=== PATIENT | female | born 1945 | race Caucasian/White ===

== ENCOUNTER 2017-06-27 06:01 | Emergency (ER) | payer OTHER ==
[~2017-06-27] VITALS: Ht 160 cm; Wt 48.1 kg
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
--- NOTE | 2017-06-27 06:58 | NUR ---
ETA FOR RT TRANSPORT 1130-12 TRIP NUMBER [id number] DISPATCHER SANDRA
[2017-06-27 10:05] VITALS: BP 104/75
[2017-06-27] MEDS ORDERED: FERR220S17 GT (18:14)
[2017-06-27] MEDS ORDERED: HALO1TAB5 GT (18:14)
[2017-06-27] MEDS ORDERED: ZOLP5TAB2 GT (18:14)
[2017-06-27] MEDS ORDERED: LOSA50TA21 PO (18:14)
[2017-06-27] MEDS ORDERED: FOLI1TAB16 GT (18:14)
[2017-06-27] MEDS ORDERED: METO100T14 PO (18:14)
[2017-06-27] MEDS ORDERED: LACT-209 GT (18:14)
[2017-06-27] MEDS ORDERED: HYDR-548 PO (18:14)
[2017-06-27] MEDS ORDERED: ESCI10TA GT (18:14)
[2017-06-27] MEDS ORDERED: CYAN10009 GT (18:14)
[2017-06-27] MEDS ORDERED: ASPI-1169 PO (18:14)
[2017-06-27] MEDS ORDERED: LEVE100S GT (18:14)
[2017-06-27] MEDS ORDERED: FENT1PAT4 TD (18:14)
[2017-06-27] MEDS ORDERED: PIPE3.379 IV (18:14)
[2017-06-27] MEDS ORDERED: QUET100T GT (18:14)
[2017-06-27] MEDS ORDERED: PANT40TA4 GT (18:14)
[2017-06-28] MEDS ORDERED: CEPH-570 PO (11:27)
== END 2017-06-27 12:36 | disposition home or self-care (01) ==
LOC: ER 06:05
DX: K94.09 Other complications of colostomy (principal); I10 Essential (primary) hypertension; Z99.11 Dependence on respirator [ventilator] status
CPT/HCPCS: A4606; Z7610

== ENCOUNTER 2017-06-27 17:21 | Inpatient (IN) | payer OTHER ==
[~2017-06-27] VITALS: Ht 160 cm; Wt 44.0 kg
--- NOTE | 2017-06-27 17:24 | NUR ---
BIBRA FROM A BOARD AND CARE DUE TO PATIENT IS PULLING OUT TRACHE AND GT. NO OTHER COMPLAIN,. PATIENT'S VSS.
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
[2017-06-27 17:50] LABS: BASOPHILS % (AUTO) 0.2 % (0.0-2.0); EOSINOPHILS % (AUTO) 0.3 % (0.0-6.0); HEMATOCRIT 26 % (33-45); HEMOGLOBIN 8.8 g/dL (11.5-14.8); LYMPHOCYTES # (AUTO) 1.1 /CMM (0.8-4.8); LYMPHOCYTES % (AUTO) 4.8 % (20.0-44.0); MEAN CORPUSCULAR HGB CONC 34 g/dl (31.0-36.0); MEAN CORPUSCULAR VOLUME 94 fL (82-100); MONOCYTES # (AUTO) 0.3 /CMM (0.1-1.30); MONOCYTES % (AUTO) 1.2 % (2.0-12.0); NEUTROPHILS # (AUTO) 21.6 /CMM (1.8-8.9); NEUTROPHILS % (AUTO) 93.5 % (43.0-81.0); PLATELET COUNT (AUTO) 349 /CMM (150-450); RDW COEFFICIENT OF VARIATION 12.8 (11.5-15.0); RED BLOOD CELL COUNT(AUTO) 2.74 MIL/uL (4.0-5.2); WHITE BLOOD COUNT (AUTO) 23.1 K/uL (4.3-11.0)
--- NOTE | 2017-06-27 17:52 | NUR ---
John sifuentes in [facility] - 06/27/17 at 1752 by DANIELLE TELE [id number]
[2017-06-27 18:05] LABS: INR 0.98 (0.85-1.15)
[2017-06-27 18:08] LABS: TROPONIN I 0.062 ng/mL (0.00-0.056)
[2017-06-27 18:09] LABS: CALCIUM, SERUM 8.8 mg/dL (8.5-10.1); CREATININE 0.6 mg/dL (0.6-1.3); POTASSIUM 4.3 mmol/L (3.5-5.1)
[2017-06-27] MEDS ORDERED: LACT-209 GT (18:14)
[2017-06-27] MEDS ORDERED: ESCI10TA GT (18:14)
[2017-06-27] MEDS ORDERED: ZOLP5TAB2 GT (18:14)
[2017-06-27] MEDS ORDERED: FOLI1TAB16 GT (18:14)
[2017-06-27] MEDS ORDERED: HALO1TAB5 GT (18:14)
[2017-06-27] MEDS ORDERED: LEVE100S GT (18:14)
[2017-06-27] MEDS ORDERED: CYAN10009 GT (18:14)
[2017-06-27] MEDS ORDERED: ASPI-1169 PO (18:14)
[2017-06-27] MEDS ORDERED: PANT40TA4 GT (18:14)
[2017-06-27] MEDS ORDERED: FERR220S17 GT (18:14)
[2017-06-27] MEDS ORDERED: QUET100T GT (18:14)
[2017-06-27] MEDS ORDERED: LOSA50TA21 PO (18:14)
[2017-06-27] MEDS ORDERED: PIPE3.379 IV (18:14)
[2017-06-27] MEDS ORDERED: METO100T14 PO (18:14)
[2017-06-27] MEDS ORDERED: HYDR-548 PO (18:14)
[2017-06-27] MEDS ORDERED: FENT1PAT4 TD (18:14)
[2017-06-27 18:15] LABS: ALBUMIN 2.5 g/dL (3.4-5.0); BILIRUBIN,DIRECT 0.1 mg/dL (0.0-0.2); BILIRUBIN,TOTAL 0.3 mg/dL (0.2-1.0); TOTAL PROTEIN, SERUM 7.1 g/dL (6.4-8.2)
--- NOTE | 2017-06-27 18:22 | NUR ---
CALLED , LEFT MESSAGE ON VOICEMAIL.
--- NOTE | 2017-06-27 18:23 | NUR ---
CALLED NURSING SUP. FOR TELE BED
[2017-06-27] MEDS ORDERED: CEFTRIAXONE 1GM BAG (ER ONLY) 50 ML IV ONE ×2 (18:30→18:46)
[2017-06-27 18:46] LABS: BAND % (MANUAL) 4 % (0.0-5.0); LYMPHOCYTES % (MANUAL) 3 % (16-48); MONOCYTES % (MANUAL) 2 % (0-11.0); NEUTROPHILS % (MANUAL) 91 (42-76)
--- NOTE | 2017-06-27 19:12 | NUR ---
MAVERICK 105
--- NOTE | 2017-06-27 19:13 | NUR ---
REPORT GIVEN TO DANA JACOB
[2017-06-27 19:20] LABS: APPEARANCE,URINE SL CLOUDY (CLEAR); BILIRUBIN,URINE NEGATIVE (NEGATIVE); BLOOD, URINE 1+ Ery/uL (NEGATIVE); COLOR,URINE YELLOW (YELLOW); KETONES,URINE NEGATIVE (NEGATIVE); LEUKOCYTE ESTERASE ,URINE 1+ (NEGATIVE); NITRITE, URINE NEGATIVE (NEGATIVE); PH,URINE 5.5 (5.0-8.0); PROTEIN,URINE 1+ mg/dl (NEGATIVE); UGLUCOSE NEGATIVE (NEGATIVE); UROBILINOGEN,URINE 0.2 EU/dL (0.2)
[2017-06-27 19:38] LABS: BACTERIA,URINE 2+ /HPF (None Seen); SQUAMOUS EPITHELIAL CELL,UR 0-2 /HPF (None Seen); YEAST,URINE Many /HPF (None Seen)
--- NOTE | 2017-06-27 19:53 | NUR ---
PATIENT IS RESTING IN ER BED, NO DISTRESS NOTED. PATIENT IS ON SODA ROOM OPERATOR, SKIN WARM AND DRY, RESP EVEN, YECENIA T DEPENDENT
[2017-06-27 20:00] VITALS: BP 105/84
--- NOTE | 2017-06-27 20:41 | NUR ---
KERRY CORTEZ TOOK REPORT
--- NOTE | 2017-06-27 20:49 | NUR ---
RN MAVERICK INITIAL NOTE RECEIVED PATIENT FROM ER, REPORT GIVEN BY NIDIA, PATIENT RESTING COMFORTABLY IN BED, TRACH TO MECHANICAL VENT ON SETTINGS ORDERED. PATIENT IS NON VERBAL, HOB ELEVATED SIDE RAILS X3, PRITI PICC TRIPLE LUMEN PATENT FLUSHING WELL, SITE CDI, MEPILEX PLACED ON SACRUM DUE TO REDNESS, F/C DRAINING TO GRAVITY, BILATERAL SOFT WRISTS RESTRAINTS DUE TO PATIENT PULLING LINES, COLOSTOMY IN PLACE, NEW APPLIANCE PLACED, SAFETY MAINTAINED AT ALL TIMES, BED IN LOW LOCKED POSITION. CALL LIGHT WITHIN REACH. WILL CONTINUE TO MONITOR FOR ANY CHANGES IN CONDITION.
[2017-06-27] MEDS ORDERED: ASPIRIN 300 MG/SUPP.RECT RC ONE ×2 (21:00→21:01)
--- NOTE | 2017-06-27 21:02 | NUR ---
transported pt to tele bed with emt and rt without incident
[2017-06-27] MEDS ORDERED: FIBERSOURCE HN 1,000 ML BOTTLE GT PRN (22:00)
[2017-06-27] MEDS ORDERED: HYDROCODONE/APAP 10/325MG 1 EA TABLET GT PRN (22:00)
[2017-06-27] MEDS ORDERED: ZOLPIDEM TARTRATE 10 MG TABLET GT PRN (22:00)
--- NOTE | 2017-06-27 22:28 | NUR ---
RN MAVERICK NOTE SN SPOKE WITH DR MARTINEZ CONCERNING PATIENTS BP 89/52 ORDER TO STOP METOPROLOL AND COZAAR, ALSO TO GIVE NS 500 CC BOLUS.
[2017-06-27] MEDS ORDERED: HALOPERIDOL 1 MG TABLET GT PRN (22:30)
[2017-06-27] MEDS ORDERED: IV NS 0.9% 500 ML IV ONE (22:30)
[2017-06-27 22:36] VITALS: BP 89/52
[2017-06-27] MEDS ORDERED: VANCOMYCIN 1 GM VIAL ONE (22:57)
[2017-06-27] MEDS ORDERED: PIPERACILLIN /TAZOBACTAM 3.375 G VIAL IV ONE (22:58)
[2017-06-27] MEDS ORDERED: IV NS 0.9% 250 ML IV PRN (23:00)
[2017-06-27] MEDS ORDERED: VANCOMYCIN 1 GM in IV D5W 250 ML IV ONE (23:00)
[2017-06-27] MEDS: PIPERACILLIN /TAZOBACTAM 3.375 G in IV D5W 100 ML IV SCH (23:09)
[2017-06-28] VITALS: BP 121/64
[2017-06-28 04:00] VITALS: BP 121/72
[2017-06-28] MEDS ORDERED: PIPERACILLIN /TAZOBACTAM 3.375 G VIAL IV ONE (05:06)
[2017-06-28] MEDS: PIPERACILLIN /TAZOBACTAM 3.375 G in IV D5W 100 ML IV SCH (05:38)
[2017-06-28 06:36] LABS: ALBUMIN 2.4 g/dL (3.4-5.0); BILIRUBIN,TOTAL 0.5 mg/dL (0.2-1.0); CALCIUM, SERUM 8.6 mg/dL (8.5-10.1); CREATININE 0.6 mg/dL (0.6-1.3); POTASSIUM 4.3 mmol/L (3.5-5.1); TOTAL PROTEIN, SERUM 6.8 g/dL (6.4-8.2)
[2017-06-28] MEDS ORDERED: FEE PK DOSING 1 MIN EA MC ONE (07:12)
[2017-06-28 07:14] LABS: BASOPHILS % (AUTO) 0.3 % (0.0-2.0); EOSINOPHILS % (AUTO) 1.4 % (0.0-6.0); HEMATOCRIT 24 % (33-45); HEMOGLOBIN 8.5 g/dL (11.5-14.8); LYMPHOCYTES # (AUTO) 1.6 /CMM (0.8-4.8); MEAN CORPUSCULAR HGB CONC 35 g/dl (31.0-36.0); MEAN CORPUSCULAR VOLUME 92 fL (82-100); MONOCYTES # (AUTO) 0.3 /CMM (0.1-1.30); MONOCYTES % (AUTO) 1.7 % (2.0-12.0); NEUTROPHILS # (AUTO) 14.2 /CMM (1.8-8.9); NEUTROPHILS % (AUTO) 86.6 % (43.0-81.0); PLATELET COUNT (AUTO) 377 /CMM (150-450); RDW COEFFICIENT OF VARIATION 12.7 (11.5-15.0); RED BLOOD CELL COUNT(AUTO) 2.64 MIL/uL (4.0-5.2); WHITE BLOOD COUNT (AUTO) 16.4 K/uL (4.3-11.0)
--- NOTE | 2017-06-28 07:30 | NUR ---
MAVERICK RN NOTE: RECEIVED PATIENT IN BED, AWAKE, CONFUSED AND NONVERBAL. ON VENT-TRACH DEPENDENT SATURATING 100%. GT FEEDING OF FIBERSOURCE @40CC/HR IS RUNNING. (L) UA PICC LINE NOTED PATENT AND INTACT. HOB ELEVATED. ON LABEL STAMPER, SR HR= 83. (B) SOFT WRIST RESTRAINT WAS IN PLACED DUE TO THE PATIENT'S BEHAVIOR OF PULLING THE COLOSTOMY BAG AND TRACHEOSTOMY. COLOSTOMY BAG NOTED CLEAN AND DRY AT THIS TIME. CHI CATHETER IN PLACED W/ YELLOW URINE DRAINING TO GRAVITY. BED ALARM AND LOCKED AT ALL TIMES. CALL LIGHT WITHIN REACH. NEEDS ANTICIPATED.
[2017-06-28 08:00] VITALS: BP 101/67
[2017-06-28] MEDS ORDERED: FIBERSOURCE HN 1,000 ML BOTTLE GT PRN (08:15)
[2017-06-28] MEDS: FERROUS SULFATE (325 MG) 325 MG/TAB TABLET GT SCH ×2 (08:46→16:22)
[2017-06-28] MEDS: LEVETIRACETAM SOL (5 ML) 100 MG/ML UDC GT SCH ×2 (08:47→16:22)
[2017-06-28] MEDS ORDERED: ESCITALOPRAM OXALATE (10 MG) 10 MG TABLET GT SCH (09:00)
[2017-06-28] MEDS ORDERED: METOPROLOL TARTRATE 50 MG TABLET GT SCH (09:00)
[2017-06-28] MEDS ORDERED: CYANOCOBALAMIN 500 MCG TABLET GT SCH (09:00)
[2017-06-28] MEDS ORDERED: LOSARTAN POTASSIUM 50 MG TABLET GT SCH (09:00)
[2017-06-28] MEDS ORDERED: PANTOPRAZOLE 40 MG/PACK PACK GT SCH (09:00)
[2017-06-28] MEDS ORDERED: FENTANYL TD PATCH (25 MCG/HR) 25 MCG/HR PATCH.TD72 TD SCH ×2 (09:00→10:30)
[2017-06-28] MEDS ORDERED: ASPIRIN 81 MG TAB.CHEW GT SCH (09:00)
[2017-06-28] MEDS ORDERED: ZOLPIDEM TARTRATE 5 MG TABLET GT PRN ×2 (10:30→22:00)
[2017-06-28] MEDS ORDERED: HYDROCODONE/APAP 10/325MG 1 EA TABLET PO PRN (10:30)
[2017-06-28] MEDS ORDERED: FIBERSOURCE HN 1,000 ML BOTTLE GT SCH (10:30)
[2017-06-28] MEDS ORDERED: HALOPERIDOL 1 MG TABLET GT PRN (10:36)
[2017-06-28] MEDS ORDERED: CEPH-570 PO (11:27)
[2017-06-28 12:00] VITALS: BP 114/68
[2017-06-28] MEDS ORDERED: PIPERACILLIN /TAZOBACTAM 3.375 G in IV D5W 100 ML IV SCH (12:00)
[2017-06-28] MEDS ORDERED: [UNRECOGNIZED DRUG - OTHER] IV SCH (13:00)
[2017-06-28] MEDS ORDERED: VANCOMYCIN 500 MG in IV D5W 100 ML IV SCH (13:00)
[2017-06-28] MEDS ORDERED: TAZOBACTAM IV SCH (13:00)
[2017-06-28] MEDS ORDERED: PIPERACILLIN IV SCH (13:00)
[2017-06-28] MEDS ORDERED: DEX IS IV SCH (13:00)
--- NOTE | 2017-06-28 14:00 | NUR ---
FOUNDRY PATTERNMAKER NOTE: RECEIVED A CALL FROM DAVID FROM [facility] AND [facility]. TO HIM HE WILL INFORM THE SHAKER SCREEN OPERATOR RE: THE ROOM NUMBER AT [facility] AND THE NUMBER OF THE NURSE TO WHOM REPORT WILL BE GIVEN. AWAITING FOR CALL BACK.
--- NOTE | 2017-06-28 15:00 | NUR ---
MANUAL ARTS TEACHER NOTE: RECEIVED A CALL FROM DAVID FROM [facility] W/ INFO FOR THE NURSE REPORT AND ROOM NUMBER FOR TRANSFER.
--- NOTE | 2017-06-28 15:10 | NUR ---
HOSE CEMENTER NOTE: CALLED AND GAVE REPORT TO DANA BALL (TEL #: [phone]) AT [facility] REGARDING THE PATIENT'S TRANSFER TO THEM AT ROOM 223B. ALL PERTINENT INFORMATION RE: TRANSFER WAS PROVIDED INCLUDING THE PRESCRIPTION FOR KEFLEX. ETA IS 1630 W/ [facility].
[2017-06-28 16:00] VITALS: BP 119/55
--- NOTE | 2017-06-28 16:10 | NUR ---
WELFARE INTERVIEWER NOTE: CALLED AND SPOKE W/ DYLLAN DE DIOS (DAUGHTER) AND MADE HER AWARE ABOUT THE PATIENT'S TRANSFER TO [facility]. [facility]. TO HER, SHE IS AWARE ABOUT IT AND SOMEBODY CALLED HER ALREADY.
[2017-06-28 16:23] VITALS: BP 141/69
[2017-06-28] MEDS ORDERED: LEVETIRACETAM SOL (5 ML) 100 MG/ML UDC GT SCH (17:00)
[2017-06-28] MEDS ORDERED: LOSARTAN POTASSIUM 50 MG TABLET PO SCH (17:00)
--- NOTE | 2017-06-28 17:00 | NUR ---
SENIOR ERP CONSULTANT NOTE: PATIENT WAS PICKED UP BY 2 DRESSED POULTRY GRADER OF [facility] W/ 1 RT. REPORT WAS GIVEN AND INFORMED THEM ABOUT THE ROOM NUMBER AT [facility] THE RECEIVING NURSE'S NAME. ALL PAPERWORK WAS GIVEN INCLUDING THE TRANSFER FORM AD PRESCRIPTION FOR KEFLEX. NO BELONGING UPON DISCHARGE WAS RELEASED. ALL PERTINENT INFORMATION WAS GIVEN. PATIENT WAS RELEASED W/ THEN VIA GURNEY ON A STABLE CONDITION. INFORMED THEM ABOUT THE PATIENT'S BEHAVIOR OF PULLING HER LINES. COLOSTOMY BAG WAS CHANGED.
[2017-06-28] MEDS ORDERED: METOPROLOL TARTRATE 50 MG TABLET PO SCH (21:00)
[2017-06-28] MEDS ORDERED: QUETIAPINE FUMARATE 100 MG TABLET GT SCH ×2 (22:00)
[2017-06-29] MEDS ORDERED: ESCITALOPRAM OXALATE (10 MG) 10 MG TABLET GT SCH (09:00)
[2017-06-29] MEDS ORDERED: FOLIC ACID 1 MG TABLET GT SCH (09:00)
[2017-06-29] MEDS ORDERED: ASPIRIN 81 MG TAB.CHEW PO SCH (09:00)
[2017-06-29] MEDS ORDERED: PANTOPRAZOLE 40 MG TABLET.DR PO SCH (09:00)
== END 2017-06-28 18:02 | disposition short-term general hospital (02) | DRG 252 ==
LOC: ER 17:23 → TELE1 20:27 → TELE-TD 21:29 → TELE1 06-28 10:02
PROVIDERS: ADMIT Internal Medicine; ATTEND Internal Medicine
PROC: 5A1935Z Respiratory Ventilation, Less than 24 Consecutive Hours (ICD-10-PCS; principal; 2017-06-27)
DX: K94.03 Colostomy malfunction (principal); Z99.11 Dependence on respirator [ventilator] status; N39.0 Urinary tract infection, site not specified; Z79.82 Long term (current) use of aspirin; Z79.899 Other long term (current) drug therapy; R13.10 Dysphagia, unspecified; Z90.49 Acquired absence of other specified parts of digestive tract; Z86.73 Personal history of transient ischemic attack (TIA), and cerebral infarction without residual deficits; D64.9 Anemia, unspecified; I10 Essential (primary) hypertension; E44.1 Mild protein-calorie malnutrition; Y83.3 Surgical operation with formation of external stoma as the cause of abnormal reaction of the patient, or of later complication, without mention of misadventure at the time of the procedure; Y82.9 Unspecified medical devices associated with adverse incidents; Y92.199 Unspecified place in other specified residential institution as the place of occurrence of the external cause
CPT/HCPCS: 31720; 36415; 71045-TC; 80048-TC; 80053-TC; 80076-TC; 81000-TC; 83605-TC; 84484-TC; 85025-TC; 85730-TC; 87040-TC; 87081-TC; 87086-TC; 87186-TC; 94002-TC; 94003-TC; 94762-TC; A4606; J0696; J1953; J2543; J3370; J7040; J7050; J7060; Z7610